=== PATIENT | male | born 1965 | race Caucasian/White ===

== ENCOUNTER 2022-06-15 15:37 | Outpatient (CLI) | payer BC, SELFPAY ==
--- NOTE | 2022-06-15 16:30 | CRLHL7_ITS ---
For Patients: As a result of the Century Cures Act, medical imaging exams and procedure reports are released immediately into your electronic medical record. You may view this report before your referring provider. If you have questions, please contact your health care provider. HISTORY: Disorder of the sacrum. TECHNIQUE: MRI of the sacrum with and without contrast. Axial, sagittal, and coronal T1, stir, and T1 post-contrast fat sat weighted sequences of the sacrum. Post-contrast sequences were performed following the intravenous administration of 15 mL Dotarem. COMPARISON: None. FINDINGS: Lesion in the inferior iliac bone adjacent to SI joint measuring 2.9 x 3.1 x 2.1 cm. Lesion is primarily sclerotic peripherally with T1 and STIR hypointensity with preserved normal T1 hyperintense bone marrow signal centrally. There is some mild surrounding edema enhancement in the iliac bone and adjacent SI joint without obvious osseous destruction. Subchondral sclerosis in the bilateral iliac bones most likely due to osteoarthritis. No acute appearing erosions, ankylosis, or joint effusion. Degenerative disc disease at L4-L5 and L5-S1. Sacral nerve roots have normal appearance. Visualized soft tissues round the sacrum and SI joint are normal. IMPRESSION: 1. 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 No definite erosions or evidence of synovitis. 2. Nonspecific lesion in the inferior right iliac bone adjacent to the SI joint. No evidence of osseous destruction. There is some adjacent bone marrow edema in the iliac bone in sacrum which appears to be due to degenerative change. Favor benign fibro-osseous lesion in absence of additional pertinent history. Differential diagnosis for bone lesions are made on x-ray or CT. Recommend obtaining CT pelvis for further evaluation. 3. Degenerative disc disease at L4-5 and L5-S1. Dictated by Sen Mariscal MD @ 06/16/2022 8:29:51 AM (Electronically Signed)
--- NOTE | 2022-06-15 17:30 | CRLHL7_ITS ---
For Patients: As a result of the Century Cures Act, medical imaging exams and procedure reports are released immediately into your electronic medical record. You may view this report before your referring provider. If you have questions, please contact your health care provider. INDICATION: Spinal stenosis. TECHNIQUE: Sagittal and axial T1 weighted images with and without gadolinium contrast, sagittal axial and coronal T2 and sagittal STIR images were obtained. FINDINGS: Multilevel spondylosis. Mild degenerative retrolisthesis at L4-5. Transitional lumbosacral segment referred to as S1 in this report there is a rudimentary disc space between this transitional S1 segment the body of the sacrum. The conus medullaris terminates normally at the L1 level. At L1-2 there is degenerative disc desiccation mild disc space narrowing with anterior marginal osteophyte formation. No stenosis of the spinal canal or neural foramen. At L2-3 degenerative disc desiccation Schmorl`s node endplate changes and mild diffuse annular bulge no stenosis of the spinal canal or neural foramen. At L3-4 degenerative disc desiccation with small Schmorl`s node endplate changes no disc herniation or stenosis the spinal canal or neural foramen. At L4-5 degenerative disc desiccation. Prominent Schmorl`s node deformity of the inferior endplate of L4 with associated reactive marrow edema and enhancement. Mild facet enlargement mild narrowing of the spinal canal and right neural foramina due to bulging disc and facet enlargement. Small osseous hemangioma at the L5 level has doubtful significance. At L5-S1 degenerative disc space narrowing disc desiccation circumferential marginal osteophytes without stenosis of the spinal canal. There is mild left lateral recess narrowing and mild bilateral foraminal narrowing. IMPRESSION: 1. Multilevel lumbar spondylosis noted between L1 and S1 as described in detail. 2. No high-grade stenosis at any lumbar level. 3. At L4-5 mild central canal narrowing. Prominent Schmorl`s node deformity of the inferior L4 endplate to the right of midline. 4. Mild foraminal narrowing on the right at L4-5 and bilaterally at L5-S1. Dictated by Manish Barajas MD @ 06/16/2022 8:44:49 AM (Electronically Signed)
== END 2022-06-15 15:38 | disposition home or self-care (01) ==
PROVIDERS: Visit Provider General Practice
DX: M48.07 Spinal stenosis, lumbosacral region (principal); M53.88 Other specified dorsopathies, sacral and sacrococcygeal region; M43.16 Spondylolisthesis, lumbar region; M51.36 Other intervertebral disc degeneration, lumbar region; M48.061 Spinal stenosis, lumbar region without neurogenic claudication; M51.46 Schmorl's nodes, lumbar region
CPT/HCPCS: 72158; 72197; A9575